=== PATIENT | female | born 1940 | race Caucasian/White ===

== ENCOUNTER 2024-03-12 23:05 | Inpatient (IN) | payer MEDICARE, MEDICAID ==
[~2024-03-12] VITALS: Ht 165.1 cm; Wt 98.0 kg
[2024-03-12 23:06] VITALS: BP 151/60; PULSE 79; RESP 18; TEMP 36.6404
[2024-03-12 23:25] VITALS: BP 151/60; PULSE 79; RESP 18; TEMP 36.61404; O2SAT 100
[2024-03-13] MEDS ORDERED: BISACODYL 10MG SUPP PR PRN (01:15)
[2024-03-13] MEDS ORDERED: CLONIDINE 0.1MG TABLET PO PRN (01:15)
[2024-03-13] MEDS: BLOOD SUGAR DIAGNOSTIC STRIP TEST SCH (06:16)
[2024-03-13 07:27] LABS: CHLORIDE 101 mEq/L (98-107); POTASSIUM 3.8 mEq/L (3.5-5.1); SODIUM 136 mEq/L (136-145)
[2024-03-13 07:28] LABS: CALCIUM 10.3 mg/dL (8.7-10.4); CARBON DIOXIDE 26 mEq/L (21-32)
[2024-03-13 07:33] LABS: CREATININE 0.7 mg/dL (0.6-1.0); GLUCOSE 126 mg/dL (70-105)
[2024-03-13 07:34] LABS: UREA NITROGEN BLOOD 13 mg/dL (9-23)
[2024-03-13 07:35] LABS: ALANINE AMINOTRANSFERASE 44 IU/L (10-49); ALBUMIN 3.9 g/dL (3.2-4.8); ASPARTATE AMINOTRANSFERASE 47 IU/L (<34); PREALBUMIN 10.1 mg/dl (10.0-40.0)
[2024-03-13 07:36] LABS: BILIRUBIN TOTAL 0.5 mg/dL (0.1-1.0); PROTEIN TOTAL 6.9 g/dL (6.0-8.3)
[2024-03-13 08:00] VITALS: BP 124/47; PULSE 78; RESP 18; TEMP 36.44736; O2SAT 100
[2024-03-13 08:40] LABS: HEMATOCRIT. 33.3 % (36.0-48.0); HEMOGLOBIN. 10.7 g/dL (12.0-16.0); MEAN CORPUSCULAR HEMOGLOBIN 25.5 pg (28.0-32.0); MEAN CORPUSCULAR HGB CONC 32.1 g/dL (31.0-37.0); MEAN CORPUSCULAR VOLUME 79.4 fL (81.0-99.0); MEAN PLATELET VOLUME 11.3 fl (7.4-10.4); PLATELET 149 x1000/uL (130-400); RED CELL DISTRIBUTION WIDTH 17.4 % (11.6-14.6)
[2024-03-13] MEDS: LEVETIRACETAM 500MG TABLET PO SCH (08:57)
[2024-03-13] MEDS: ASPIRIN 81MG TABLET PO SCH (08:57)
[2024-03-13] MEDS: AMLODIPINE 5MG TABLET PO SCH (08:59)
[2024-03-13] MEDS: INSULIN LISPRO 100 UNITS/ML SUBCUT SCH (09:00)
[2024-03-13 09:11] LABS: DIFFERENTIAL COMMENT 1
[2024-03-13] MEDS ORDERED: NALOXONE HCL 0.4MG/ML VIAL IV PRN (10:15)
[2024-03-13] MEDS: CLOPIDOGREL 75MG TABLET PO SCH (12:19)
[2024-03-13] MEDS: THEOPHYLLINE ANHYDROUS 80 MG/15 ML 120ML PO SCH (13:54)
[2024-03-13 20:00] VITALS: BP 136/50; PULSE 63; RESP 18; TEMP 36.72516; O2SAT 97
[2024-03-13] MEDS: ATORVASTATIN CALCIUM 40MG TABLET PO SCH (21:48)
[2024-03-13 22:49] LABS: ANISOCYTOSIS 1+; MICROCYTOSIS 1+; PLATELET ESTIMATE NORMAL
[2024-03-14 07:20] LABS: BASOPHILS % 0.8 % (0.0-2.0); EOSINOPHILS % 1.6 % (0.0-5.0); HEMATOCRIT. 32.7 % (36.0-48.0); HEMOGLOBIN. 10.5 g/dL (12.0-16.0); LYMPHOCYTES % 20.5 % (20.0-50.0); MEAN CORPUSCULAR HEMOGLOBIN 25.8 pg (28.0-32.0); MEAN CORPUSCULAR VOLUME 80.8 fL (81.0-99.0); MEAN PLATELET VOLUME 10.5 fl (7.4-10.4); MONOCYTES % 8.3 % (2.0-8.0); NEUTROPHILS % 68.8 % (40.0-76.0); PLATELET 181 x1000/uL (130-400); RED BLOOD CELL COUNT 4.05 mill/uL (4.2-5.4); RED CELL DISTRIBUTION WIDTH 17.2 % (11.6-14.6); WHITE BLOOD COUNT 12.9 x1000/uL (4.5-11.0)
[2024-03-14 07:28] LABS: CHLORIDE 102 mEq/L (98-107); POTASSIUM 4.1 mEq/L (3.5-5.1); SODIUM 137 mEq/L (136-145)
[2024-03-14 07:29] LABS: CARBON DIOXIDE 28 mEq/L (21-32)
[2024-03-14 07:30] LABS: CALCIUM 10.4 mg/dL (8.7-10.4)
[2024-03-14 07:34] LABS: CREATININE 0.8 mg/dL (0.6-1.0); IRON 27 ug/dL (50-170)
[2024-03-14 07:35] LABS: ALANINE AMINOTRANSFERASE 37 IU/L (10-49); AMMONIA < 17 uMol/L (<32); GLUCOSE 87 mg/dL (70-105); TOTAL IRON BINDING CAPACITY 331 ug/dl (250-425); UREA NITROGEN BLOOD 12 mg/dL (9-23)
[2024-03-14 07:36] LABS: ALBUMIN 3.7 g/dL (3.2-4.8); ASPARTATE AMINOTRANSFERASE 31 IU/L (<34); CREATINE KINASE 89 IU/L (34-145); THYROID STIMULATING HORMONE 3.36 uIU/mL (0.55-4.78)
[2024-03-14 07:37] LABS: BILIRUBIN TOTAL 0.5 mg/dL (0.1-1.0); PROTEIN TOTAL 6.7 g/dL (6.0-8.3)
[2024-03-14 08:00] VITALS: BP 136/56; PULSE 52; RESP 16; TEMP 36.50292; O2SAT 99
[2024-03-14 08:12] LABS: FOLIC ACID (FOLATE) SERUM 7.42 ng/mL (>5.38); VITAMIN B12 SERUM 292 pg/mL (211-911)
[2024-03-14 08:13] LABS: FERRITIN 43 ng/mL (10-291)
[2024-03-14] MEDS: CYANOCOBALAMIN 1000MCG/ML VIAL IM SCH (16:59)
[2024-03-14] MEDS: FERROUS SULFATE 325MG TABLET PO SCH (17:05)
[2024-03-14 20:00] VITALS: BP 124/49; PULSE 63; RESP 20; TEMP 36.50292; O2SAT 95
[2024-03-15 08:00] VITALS: BP 146/57; PULSE 85; RESP 17; TEMP 35.78064; O2SAT 100
[2024-03-15] MEDS: ASCORBIC ACID 500 MG TABLET PO SCH (08:58)
[2024-03-15] MEDS: ENOXAPARIN 40MG/0.4ML SYR SUBCUT SCH (08:58)
[2024-03-15 18:17] LABS: CLARITY URINE CLOUDY (CLEAR); COLOR URINE YELLOW (YELLOW); GLUCOSE URINE NEGATIVE (NEGATIVE); KETONES URINE NEGATIVE (NEGATIVE); LEUKOCYTE ESTERASE URINE 1+ (NEGATIVE); NITRITE URINE NEGATIVE (NEGATIVE); OCCULT BLOOD URINE 2+ (NEGATIVE); PROTEIN URINE NEGATIVE (NEGATIVE); SPECIFIC GRAVITY URINE 1.006 (1.005-1.030)
[2024-03-15 18:33] LABS: SQUAMOUS EPITHELIAL CELL URINE 1+ /lpf (RARE/1+)
[2024-03-15 18:34] LABS: BACTERIA URINE TRACE
[2024-03-15 20:00] VITALS: BP 135/55; PULSE 72; RESP 18; TEMP 36.55848; O2SAT 98
[2024-03-16] MEDS: DEXTROSE 50% WATER 50ML SYRINGE IV PRN (07:13)
[2024-03-16 08:00] VITALS: BP 161/60; PULSE 59; RESP 18; TEMP 36.6696; O2SAT 100
[2024-03-16] MEDS: HYDROCODONE/ACETAMINOPHEN 5/325MG TABLET PO PRN (08:32)
[2024-03-16 13:11] LABS: EOSINOPHILS % 2.5 % (0.0-5.0); HEMATOCRIT. 35.9 % (36.0-48.0); HEMOGLOBIN. 11.7 g/dL (12.0-16.0); MEAN CORPUSCULAR HEMOGLOBIN 26.2 pg (28.0-32.0); MEAN CORPUSCULAR HGB CONC 32.5 g/dL (31.0-37.0); MEAN CORPUSCULAR VOLUME 80.8 fL (81.0-99.0); MEAN PLATELET VOLUME 9.4 fl (7.4-10.4); MONOCYTES % 12.5 % (2.0-8.0); PLATELET 247 x1000/uL (130-400); RED BLOOD CELL COUNT 4.44 mill/uL (4.2-5.4); RED CELL DISTRIBUTION WIDTH 17.5 % (11.6-14.6); WHITE BLOOD COUNT 7.6 x1000/uL (4.5-11.0)
[2024-03-16 13:19] LABS: CHLORIDE 101 mEq/L (98-107); POTASSIUM 4.7 mEq/L (3.5-5.1); SODIUM 131 mEq/L (136-145)
[2024-03-16 13:20] LABS: CALCIUM 10.4 mg/dL (8.7-10.4); CARBON DIOXIDE 24 mEq/L (21-32)
[2024-03-16 13:25] LABS: CREATININE 0.8 mg/dL (0.6-1.0); GLUCOSE 128 mg/dL (70-105); UREA NITROGEN BLOOD 12 mg/dL (9-23)
[2024-03-16 20:00] VITALS: BP 117/39; PULSE 59; RESP 20; TEMP 36.50292; O2SAT 96
[2024-03-16] MEDS: SULFAMETHOXAZOLE/TRIMETHOPRIM 800/160MG TABLET PO SCH (21:11)
[2024-03-16] MEDS: ENOXAPARIN 30MG/0.3ML SYR SUBCUT SCH (21:12)
[2024-03-17 08:00] VITALS: BP 138/61; PULSE 60; RESP 17; TEMP 36.114; O2SAT 100
[2024-03-17] MEDS: ACETAMINOPHEN 325MG TABLET PO PRN (13:58)
[2024-03-17] MEDS: ONDANSETRON HCL 4MG/2ML INJ IV PRN (14:06)
[2024-03-17] MEDS ORDERED: DEXT 10% WATER 1,000 ML IV SCH (14:15)
[2024-03-17 14:27] VITALS: BP 140/51; PULSE 64
[2024-03-17] MEDS ORDERED: NITROGLYCERIN 0.4MG TABLET SL SL ONE (14:45)
[2024-03-17] MEDS: NITROGLYCERIN 0.4MG TABLET SL SL NR (15:25)
[2024-03-17] MEDS: DEXT 10% WATER 1,000 ML IV SCH (15:57)
[2024-03-17 20:00] VITALS: BP 137/44; PULSE 63; RESP 19; TEMP 36.72516; O2SAT 100
[2024-03-17] MEDS: LACTULOSE 20G/30ML UDC PO SCH (20:36)
[2024-03-17 23:55] LABS: CREATINE KINASE MB FRACTION < 0.5 ng/mL (0.5-3.6)
[2024-03-17 23:56] LABS: TROPONIN I HIGH SENSITIVITY 5 ng/L (3.0-34)
[2024-03-17 23:57] LABS: CREATINE KINASE 80 IU/L (34-145)
[2024-03-18 07:57] LABS: CREATINE KINASE MB FRACTION < 0.5 ng/mL (0.5-3.6)
[2024-03-18 07:58] LABS: CREATINE KINASE 50 IU/L (34-145)
[2024-03-18 08:00] VITALS: BP 130/49; PULSE 68; RESP 17; TEMP 36.28068; O2SAT 99
[2024-03-18 08:10] LABS: TROPONIN I HIGH SENSITIVITY < 4 ng/L (3.0-34)
[2024-03-18 20:00] VITALS: BP 122/68; PULSE 72; RESP 18; TEMP 36.44736; O2SAT 100
[2024-03-18 21:30] LABS: CREATINE KINASE 90 IU/L (34-145); CREATINE KINASE MB FRACTION < 0.5 ng/mL (0.5-3.6)
[2024-03-18 21:41] LABS: TROPONIN I HIGH SENSITIVITY < 4 ng/L (3.0-34)
[2024-03-19 08:00] VITALS: BP 128/48; PULSE 54; RESP 18; TEMP 36.55848; O2SAT 98
[2024-03-19 13:08] LABS: CHLORIDE 101 mEq/L (98-107); POTASSIUM 4.2 mEq/L (3.5-5.1); SODIUM 134 mEq/L (136-145)
[2024-03-19 13:09] LABS: CALCIUM 10.7 mg/dL (8.7-10.4); CARBON DIOXIDE 28 mEq/L (21-32)
[2024-03-19 13:14] LABS: CREATININE 0.9 mg/dL (0.6-1.0); GLUCOSE 104 mg/dL (70-105); UREA NITROGEN BLOOD 12 mg/dL (9-23)
[2024-03-19 13:19] LABS: T4 FREE 1.24 ng/dL (0.89-1.76)
[2024-03-19 20:00] VITALS: BP 141/55; PULSE 67; RESP 18; TEMP 36.72516; O2SAT 100
[2024-03-20 06:39] LABS: CALCIUM 11.1 mg/dL (8.7-10.4); CARBON DIOXIDE 26 mEq/L (21-32); CHLORIDE 101 mEq/L (98-107); POTASSIUM 4.7 mEq/L (3.5-5.1); SODIUM 133 mEq/L (136-145)
[2024-03-20 06:44] LABS: GLUCOSE 88 mg/dL (70-105); GLUCOSE FASTING 88 mg/dL (70-105); UREA NITROGEN BLOOD 13 mg/dL (9-23)
[2024-03-20 08:00] VITALS: BP 105/72; PULSE 59; RESP 20; TEMP 36.6696; O2SAT 98
[2024-03-20] MEDS: MAGNESIUM 2 G PREMIX 50 ML IV ONE (14:59)
[2024-03-20 20:00] VITALS: BP 131/51; PULSE 61; RESP 18; TEMP 36.78072; O2SAT 100
[2024-03-21 06:42] LABS: PHOSPHORUS 3.2 mg/dL (2.5-4.9)
[2024-03-21 08:00] VITALS: BP 116/59; PULSE 66; RESP 18; TEMP 36.50292; O2SAT 100
[2024-03-21] MEDS: CYANOCOBALAMIN 1000MCG TABLET PO SCH (09:14)
[2024-03-21] MEDS: MAGNESIUM 2 G PREMIX 50 ML IV NR (12:15)
[2024-03-21 14:11] LABS: C-PEPTIDE 1.8 ng/mL (1.1-4.4); INSULIN 11.3 uIU/mL (2.6-24.9)
[2024-03-21] MEDS: CHOLECALCIFEROL (D3) 1000 UNIT TABLET PO SCH (16:45)
[2024-03-21 19:07] LABS: A/G RATIO 0.8 (0.7-1.7); ALPHA-1-GLOBULIN 0.3 g/dL (0.0-0.4); ALPHA-2-GLOBULIN 0.8 g/dL (0.4-1.0); BETA GLOBULIN 1.1 g/dL (0.7-1.3); GAMMA GLOBULINS 1.6 g/dL (0.4-1.8); GLOBULIN TOTAL 3.8 g/dL (2.2-3.9); M-SPIKE Not Observed g/dL (Not Observed); TOTAL PROTEIN SERUM 6.8 g/dL (6.0-8.5)
[2024-03-21 20:00] VITALS: BP 127/80; PULSE 71; RESP 18; TEMP 35.39172; O2SAT 95
[2024-03-22 07:32] LABS: POTASSIUM 4.3 mEq/L (3.5-5.1)
[2024-03-22 07:33] LABS: CALCIUM 10.7 mg/dL (8.7-10.4)
[2024-03-22 07:38] LABS: CREATININE 0.9 mg/dL (0.6-1.0)
[2024-03-22 07:53] LABS: BASOPHILS % 1.3 % (0.0-2.0); EOSINOPHILS % 2.3 % (0.0-5.0); HEMATOCRIT. 35.3 % (36.0-48.0); HEMOGLOBIN. 11.2 g/dL (12.0-16.0); LYMPHOCYTES % 45.6 % (20.0-50.0); MEAN CORPUSCULAR HEMOGLOBIN 25.5 pg (28.0-32.0); MEAN CORPUSCULAR HGB CONC 31.7 g/dL (31.0-37.0); MEAN CORPUSCULAR VOLUME 80.5 fL (81.0-99.0); MEAN PLATELET VOLUME 10.2 fl (7.4-10.4); NEUTROPHILS % 38.8 % (40.0-76.0); PLATELET 226 x1000/uL (130-400); RED BLOOD CELL COUNT 4.39 mill/uL (4.2-5.4); RED CELL DISTRIBUTION WIDTH 17.2 % (11.6-14.6); WHITE BLOOD COUNT 6.7 x1000/uL (4.5-11.0)
[2024-03-22 08:00] VITALS: BP 132/45; PULSE 50; RESP 17; TEMP 35.61396; O2SAT 100
[2024-03-22 09:10] LABS: ANGIOTENSION CONVERTING ENZYME 37 U/L (14-82)
[2024-03-22 13:07] LABS: ANTI-PARIETAL CELL AB 49.1 Units (0.0-20.0)
[2024-03-22 20:00] VITALS: BP 143/52; PULSE 77; RESP 18; TEMP 36.89184; O2SAT 100
[2024-03-23 08:00] VITALS: BP 137/59; PULSE 64; RESP 19; TEMP 36.22512; O2SAT 98
[2024-03-23 14:08] LABS: INTRINSIC FACTOR BLOCKING ABS 13.4 AU/mL (0.0-1.1)
[2024-03-23 20:00] VITALS: BP 125/44; PULSE 80; RESP 18; TEMP 36.72516; O2SAT 92
[2024-03-24 08:00] VITALS: BP 94/60; PULSE 77; RESP 18; TEMP 36.6696; O2SAT 100
[2024-03-24 20:00] VITALS: BP 140/58; PULSE 78; RESP 18; TEMP 36.61404; O2SAT 100
[2024-03-25 08:00] VITALS: BP 125/60; PULSE 61; RESP 18; TEMP 36.114; O2SAT 100
[2024-03-25] MEDS: MEGESTROL ACETATE 400 MG/10 ML UDC PO SCH (09:47)
[2024-03-25] MEDS: DICLOFENAC SODIUM 1% GEL 50GM TOP SCH (13:41)
[2024-03-25] MEDS: DEXT 5%/0.9% NACL 1,000 ML IV SCH (13:45)
[2024-03-25] MEDS: LIDOCAINE 5% PATCH TOP SCH (13:53)
[2024-03-25 20:00] VITALS: BP 127/57; PULSE 52; RESP 18; TEMP 36.61404; O2SAT 99
[2024-03-26 06:02] LABS: CARBON DIOXIDE 28 mEq/L (21-32); CHLORIDE 106 mEq/L (98-107); POTASSIUM 4.1 mEq/L (3.5-5.1); SODIUM 137 mEq/L (136-145)
[2024-03-26 06:07] LABS: CREATININE 0.6 mg/dL (0.6-1.0)
[2024-03-26 06:08] LABS: GLUCOSE 91 mg/dL (70-105); UREA NITROGEN BLOOD 14 mg/dL (9-23)
[2024-03-26 06:09] LABS: BASOPHILS % 0.9 % (0.0-2.0); EOSINOPHILS % 0.9 % (0.0-5.0); HEMATOCRIT. 32.4 % (36.0-48.0); HEMOGLOBIN. 10.4 g/dL (12.0-16.0); MEAN CORPUSCULAR HEMOGLOBIN 25.9 pg (28.0-32.0); MEAN CORPUSCULAR HGB CONC 32.2 g/dL (31.0-37.0); MEAN CORPUSCULAR VOLUME 80.5 fL (81.0-99.0); MEAN PLATELET VOLUME 9.7 fl (7.4-10.4); MONOCYTES % 6.1 % (2.0-8.0); NEUTROPHILS % 56.1 % (40.0-76.0); PLATELET 214 x1000/uL (130-400); RED BLOOD CELL COUNT 4.02 mill/uL (4.2-5.4); RED CELL DISTRIBUTION WIDTH 17.2 % (11.6-14.6); WHITE BLOOD COUNT 7.3 x1000/uL (4.5-11.0)
[2024-03-26 08:00] VITALS: BP 134/46; PULSE 71; RESP 18; TEMP 36.50292; O2SAT 100
[2024-03-26 20:00] VITALS: BP 123/78; PULSE 66; RESP 18; TEMP 38.00304; O2SAT 100
[2024-03-26] MEDS: ENOXAPARIN 30MG/0.3ML SYR SUBCUT SCH (22:42)
[2024-03-27 08:00] VITALS: BP 149/58; PULSE 59; RESP 18; TEMP 36.50292; O2SAT 99
[2024-03-27] MEDS: ETHYL CHLORIDE CAN TOP NR (13:00)
[2024-03-27] MEDS: LIDOCAINE HCL 1% 20ML VIAL INFIL NR (13:00)
[2024-03-27] MEDS: TRIAMCINOLONE ACETONIDE 40MG/ML 1ML VIAL IM NR (13:00)
[2024-03-27 20:00] VITALS: BP 135/60; PULSE 96; RESP 18; TEMP 36.28068; O2SAT 97
[2024-03-28 08:00] VITALS: BP 132/41; PULSE 64; RESP 20; TEMP 36.00288; O2SAT 100
[2024-03-28 10:33] LABS: BASOPHILS % 0.4 % (0.0-2.0); EOSINOPHILS % 0.1 % (0.0-5.0); HEMATOCRIT. 36.2 % (36.0-48.0); HEMOGLOBIN. 11.7 g/dL (12.0-16.0); LYMPHOCYTES % 11.7 % (20.0-50.0); MEAN CORPUSCULAR HEMOGLOBIN 26.4 pg (28.0-32.0); MEAN CORPUSCULAR HGB CONC 32.3 g/dL (31.0-37.0); MEAN CORPUSCULAR VOLUME 81.8 fL (81.0-99.0); MONOCYTES % 4.3 % (2.0-8.0); NEUTROPHILS % 83.5 % (40.0-76.0); PLATELET 248 x1000/uL (130-400); RED BLOOD CELL COUNT 4.42 mill/uL (4.2-5.4); RED CELL DISTRIBUTION WIDTH 17.6 % (11.6-14.6); WHITE BLOOD COUNT 9.4 x1000/uL (4.5-11.0)
[2024-03-28 13:23] LABS: CHLORIDE 106 mEq/L (98-107); POTASSIUM 4.1 mEq/L (3.5-5.1); SODIUM 137 mEq/L (136-145)
[2024-03-28 13:24] LABS: CALCIUM 10.6 mg/dL (8.7-10.4); CARBON DIOXIDE 22 mEq/L (21-32)
[2024-03-28 13:29] LABS: CREATININE 0.6 mg/dL (0.6-1.0); GLUCOSE 134 mg/dL (70-105); UREA NITROGEN BLOOD 23 mg/dL (9-23)
[2024-03-28 13:31] LABS: PHOSPHORUS 2.7 mg/dL (2.5-4.9)
[2024-03-28] MEDS ORDERED: ATOR80TA PO (15:24)
[2024-03-28] MEDS ORDERED: CLOP-31 PO (15:25)
[2024-03-28] MEDS ORDERED: THEO400T PO (15:26)
[2024-03-28] MEDS ORDERED: LEVE1000 PO (15:28)
[2024-03-28] MEDS ORDERED: ASPI-1160 PO (15:30)
[2024-03-28] MEDS ORDERED: AMLO5TAB4 PO (15:31)
[2024-03-28] MEDS ORDERED: FERR325T6 PO (15:32)
[2024-03-28] MEDS ORDERED: ASCO125T PO (15:35)
[2024-03-28] MEDS ORDERED: CHOL100046 PO (15:35)
[2024-03-28 15:40] VITALS: BP 116/56; PULSE 84; TEMP 97; O2SAT 100
== END 2024-03-28 20:55 | disposition home health service (06) | DRG 52 ==
PROVIDERS: ADMIT Physical Medicine & Rehabilitation Spinal Cord Injury Medicine; ATTEND Internal Medicine Nephrology
DX: G93.41 Metabolic encephalopathy (principal); E11.649 Type 2 diabetes mellitus with hypoglycemia without coma; E11.42 Type 2 diabetes mellitus with diabetic polyneuropathy; I69.354 Hemiplegia and hemiparesis following cerebral infarction affecting left non-dominant side; D63.8 Anemia in other chronic diseases classified elsewhere; D72.829 Elevated white blood cell count, unspecified; F01.50 Vascular dementia, unspecified severity, without behavioral disturbance, psychotic disturbance, mood disturbance, and anxiety; G40.909 Epilepsy, unspecified, not intractable, without status epilepticus; E04.2 Nontoxic multinodular goiter; R53.81 Other malaise; I10 Essential (primary) hypertension; Z74.09 Other reduced mobility; N39.0 Urinary tract infection, site not specified; E83.52 Hypercalcemia; R91.1 Solitary pulmonary nodule; E83.42 Hypomagnesemia; M48.02 Spinal stenosis, cervical region; E78.00 Pure hypercholesterolemia, unspecified; I72.4 Aneurysm of artery of lower extremity; M19.012 Primary osteoarthritis, left shoulder; E53.8 Deficiency of other specified B group vitamins; I69.320 Aphasia following cerebral infarction; I69.322 Dysarthria following cerebral infarction; Z82.49 Family history of ischemic heart disease and other diseases of the circulatory system; Z83.3 Family history of diabetes mellitus; Z87.891 Personal history of nicotine dependence; Z91.81 History of falling; I69.391 Dysphagia following cerebral infarction
CPT/HCPCS: 36415; 70551; 71045; 73030; 76536; 80048; 80053; 81003; 82140; 82164; 82306; 82330; 82533; 82550; 82553; 82607; 82728; 82746; 82947; 82962; 83036; 83525; 83540; 83550; 83735; 83930; 83970; 84100; 84134; 84145; 84155; 84165; 84206; 84439; 84443; 84484; 84681; 85025; 86340; 92523; 92610; 93306; 93970; 97110; 97116; 97150; 97162; 97166; 97530; 97535; 97542; A6261; C1893; J1650; J1815; J2405; J3301; J3420; J3475; J3490; J7042; J7070